=== PATIENT | female | born 1970 | race Hispanic/Latino ===

== ENCOUNTER 2024-09-29 07:30 | Emergency (ER) | payer BC ==
[~2024-09-29] VITALS: Ht 160 cm; Wt 90.9 kg
[2024-09-29 07:35] VITALS: PULSE 86; RESP 18; TEMP 98.8
[2024-09-29] MEDS ORDERED: HYDROCHLOROTHIA25 MG PO (08:05)
[2024-09-29] MEDS: ASPIRIN 325 MG TAB PO ONE (09:10)
[2024-09-29 09:22] VITALS: BP 154/71; PULSE 71; RESP 18; TEMP 98.1; O2SAT 99
== END 2024-09-29 09:17 | disposition home or self-care (01) ==
LOC: FSED 07:38
DX: R10.32 Left lower quadrant pain (principal); I10 Essential (primary) hypertension; D75.839 Thrombocytosis, unspecified
CPT/HCPCS: 74176; 80053; 81003; 81025; 85025; 99283